=== PATIENT | female | born 1995 | race Caucasian/White ===

== ENCOUNTER 2017-05-24 19:22 | Emergency (ER) | payer SELFPAY ==
[~2017-05-24] VITALS: Ht 147.3 cm; Wt 43.6 kg
[2017-05-24 19:25] VITALS: TEMP 36.4; Ht 147.3 cm; Wt 43.6 kg
[2017-05-24] MEDS ORDERED: KETOROLAC TROMETHAMINE 30 MG/ML VIAL IV STA (20:29)
[2017-05-24] MEDS ORDERED: SODIUM CHLORIDE 0.9% 1000ML 1,000 ML IV STA (20:29)
[2017-05-24] MEDS ORDERED: DIPH1TAB98 PO (20:51)
[2017-05-24 21:14] LABS: BASO % 0.4 %; BASO ABS # 0.05 K/uL (0-0.2); EOS % 2.3 %; EOS ABS # 0.26 K/uL (0-0.5); HEMATOCRIT 36.8 % (37-47); HEMOGLOBIN 12.7 g/dL (12.0-16.0); IG# 0.03 K/uL (0.00-0.02); LYMPH % 19.3 %; LYMPH ABS # 2.21 K/uL (1.2-3.4); MEAN CELL VOLUME 87.4 fL (80-100); MEAN CORPUSCULAR HEMOGLOBIN 30.2 pg (25-34); MEAN CORPUSCULAR HGB CONC 34.5 g/dl (32-36); MEAN PLATELET VOLUME 11.1 fL (7.4-10.4); MONO % 6.4 %; MONO ABS # 0.73 K/uL (0.11-0.59); NEUT % 71.3 %; PLATELET COUNT 259 K/uL (130-400); RED CELL DISTRIBUTION WIDTH SD 41.9 fL (36.4-46.3); WHITE BLOOD COUNT 11.48 K/uL (4.8-10.8)
[2017-05-24 21:29] LABS: PTT PATIENT 28.2 SECONDS (21.0-31.0)
[2017-05-24 21:44] LABS: ALBUMIN 4.5 gm/dl (3.4-5.0); ALT/SGPT 16 U/L (12-78); AST/SGOT 15 U/L (15-37); BLOOD UREA NITROGEN 6 mg/dl (7-18); CALCIUM 8.7 mg/dl (8.5-10.1); CARBON DIOXIDE 24 mmol/L (21-32); CREATININE 0.52 mg/dl (0.60-1.20); GLUCOSE 80 mg/dl (70-99); POTASSIUM 3.2 mmol/L (3.5-5.1); SODIUM 140 mmol/L (136-145)
[2017-05-24 21:46] LABS: ALKALINE PHOSPHATASE 55 U/L (45-117); TOTAL PROTEIN 6.8 gm/dl (6.4-8.2)
--- NOTE | 2017-05-24 22:30 | DIAGNOSTIC IMAGING REPORT ---
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 No myometrial mass lesions identified. Endometrium measures 0.5 cm and appears trilaminar. The right ovary measures 5.1 x 1.6 x 2.7 cm demonstrates normal-appearing follicles. Arterial inflow to the right ovary is documented. No right adnexal mass lesions. Left ovary measures 1.6 x 3.7 x 2.3 cm and is also within normal limits with arterial inflow documented. No left adnexal mass lesions. Trace free pelvic fluid, likely physiologic. IMPRESSION: 1. Unremarkable sonographic appearance of the uterus and endometrium. 2. No evidence of ovarian torsion. 3. Trace free pelvic fluid, likely physiologic. The above report was generated using voice recognition software. It may contain grammatical, syntax or spelling errors. Electronically signed by: Cornelius Murphy M.D. 05/24/2017 10:28 PM Dictated Date/Time: 05/24/2017 10:26 PM
[2017-05-24] MEDS ORDERED: CEPHALEXIN 500MG HOME PACK 1 EA BTL PO ONE (22:45)
[2017-05-24] MEDS ORDERED: CEPH500C2 PO (22:46)
[2017-05-24 23:02] VITALS: BP 112/81; PULSE 85; O2SAT 99
--- NOTE | 2017-05-25 16:41 | EMERGENCY ROOM VISIT NOTE ---
ED Visit Note First contact with patient: 19:54 Chief Complaint: Abdominal cramping and vaginal bleeding. History of Present Illness: Ms. Pace is a 21 year-old white female who ambulates into the ED accompanied by female friend complaining of mid lower quadrant abdominal cramping and vaginal bleeding. Historically patient reports she has a history of irregular menstrual cycles. Last year she was on control to try to regulate them but it was unsuccessful and she has been off control for approximately 6 months. Patient reports she noted vaginal bleeding last evening that she describes as spotting. She then started to developed a cramping sensation in the mid bilateral lower abdomen area. Pain intermittently radiates into the lower back. She rates her discomfort 8/10. She has not identified any aggravating or alleviating factors related to the pain. She has not taken any medication for pain prior to arrival at the hospital. Associated with her pain she reports she is changing her tampon or pad every 3 hours, she is passing small and larger clots up to the size of a quarter and she reports that in the beginning part of the month she was experiencing some breast tenderness which is subsequently resolved. Additionally she reports earlier today she was getting out of bed and had an explosive episode of vaginal bleeding. Patient denies fevers, chills, sweats, skin eruptions, skin color changes, upper respiratory tract symptoms, shortness of breath, chest pain, nausea, vomiting, diarrhea, constipation, rectal bleeding, black/tarry stools, urinary symptoms, hematuria, vaginal discharge, painful intercourse, postcoital bleeding. Review of Systems: As noted above in history of present illness. All body systems were reviewed and found to be negative as noted above. Past Medical History: Bronchitis, anxiety, insomnia, status post wisdom teeth extraction and tonsillectomy and adenoidectomy. Current Medications: Benadryl. Allergies to Medications: Bactrim. Social History: Patient is currently employed; she feels safe in her home environment; she admits to tobacco and alcohol use. Physical Examination: Vital Signs: Date Time Temp Pulse Resp B/P (MAP) Pulse Ox O2 Delivery O2 Flow Rate FiO2 05/24/17 23:02 85 18 112/81 99 05/24/17 21:57 99 18 119/71 99 Room Air 05/24/17 19:25 36.4 107 18 128/80 99 Room Air GENERAL: 21-year-old female in mild to moderate distress due to symptoms, nontoxic-appearing, afebrile and hemodynamically stable. NEUROLOGICAL: Awake, alert and oriented to person, place and time. Answering questions appropriately and following commands. Normal gait. Good hand eye coordination. SKIN: Warm, dry and pink. No soft tissue eruptions or trauma noted. HEENT: Atraumatic and normocephalic. PERRLA. Sclera white and conjunctiva pink. Oral cavity moist and pink. Pharynx is nonerythematous or edematous. Speech normal. No lymphadenopathy. Trachea midline. No jugular venous distention. BACK: No tenderness over the bony spine. No CVA tenderness. THORAX: Lungs sounds are clear to auscultation and equal bilaterally with symmetrical chest wall. No wheezing, rales or rhonchi. No crepitus, tenderness , subcutaneous air or deformities noted. HEART: Regular rate and rhythm. No gallops, rubs or murmurs are appreciated. ABDOMEN: Flat, soft and nontender. Positive bowel sounds in all quadrants. No guarding, rigidity or organomegaly. PELVIC: External genitalia: Normal appearing external genitalia with no erythema, edema , lesions. Speculum exam: Vagina pink, mucosa not atrophy. Cervix 2 cm in diameter with a small os and around without lesions. A small amount of blood was noted in the vaginal vault. No active bleeding noted. . EXTREMITIES: Moves all extremities well on command and with purpose. All distal neurovascular statuses are intact and equal bilaterally. ED Course: Patient is assessed as noted above. Patient is assessed as noted above. Laboratory Testing: Test 05/24/17 20:40 05/24/17 20:45 Range/Units Urine Color RED Urine Appearance CLOUDY CLEAR Urine pH 6.0 4.5-7.5 Urine Specific [place] 1.025 1.000-1.030 Urine Protein 2+ NEG Urine Glucose (UA) NEG NEG Urine Ketones NEG NEG Urine Occult Blood 3+ NEG Urine Nitrite NEG NEG Urine Bilirubin NEG NEG Urine Urobilinogen NEG NEG Urine Leukocyte Esterase SMALL NEG Urine RBC >30 0-4 /hpf Urine WBC 10-30 0-5 /hpf Urine Epithelial Cells 5-10 0-5 /lpf Urine Bacteria NEG NEG White Blood Count 11.48 4.8-10.8 K/uL Red Blood Count 4.21 4.2-5.4 M/uL Hemoglobin 12.7 12.0-16.0 g/dL Hematocrit 36.8 37-47 % Mean Corpuscular Volume 87.4 80-100 fL Mean Corpuscular Hemoglobin 30.2 25-34 pg Mean Corpuscular Hemoglobin Concent 34.5 32-36 g/dl Platelet Count 259 130-400 K/uL Mean Platelet Volume 11.1 7.4-10.4 fL Neutrophils (%) (Auto) 71.3 % Lymphocytes (%) (Auto) 19.3 % Monocytes (%) (Auto) 6.4 % Eosinophils (%) (Auto) 2.3 % Basophils (%) (Auto) 0.4 % Neutrophils # (Auto) 8.20 1.4-6.5 K/uL Lymphocytes # (Auto) 2.21 1.2-3.4 K/uL Monocytes # (Auto) 0.73 0.11-0.59 K/uL Eosinophils # (Auto) 0.26 0-0.5 K/uL Basophils # (Auto) 0.05 0-0.2 K/uL RDW Standard Deviation 41.9 36.4-46.3 fL RDW Coefficient of Variation 13.0 11.5-14.5 % Immature Granulocyte % (Auto) 0.3 % Immature Granulocyte # (Auto) 0.03 0.00-0.02 K/uL Prothrombin Time 10.0 9.0-12.0 SECONDS Prothromb Time International Ratio 1.0 0.9-1.1 Activated Partial Thromboplast Time 28.2 21.0-31.0 SECONDS Partial Thromboplastin Ratio 1.1 Sodium Level 140 136-145 mmol/L Potassium Level 3.2 3.5-5.1 mmol/L Chloride Level 110 98-107 mmol/L Carbon Dioxide Level 24 21-32 mmol/L Anion Gap 6.0 3-11 mmol/L Blood Urea Nitrogen 6 7-18 mg/dl Creatinine 0.52 0.60-1.20 mg/dl Est Creatinine Clear Calc Drug Dose 110.4 ml/min Estimated GFR () > 150.0 Estimated GFR (Non- 136.6 BUN/Creatinine Ratio 12.1 10-20 Random Glucose 80 70-99 mg/dl Calcium Level 8.7 8.5-10.1 mg/dl Total Bilirubin 0.5 0.2-1 mg/dl Aspartate Amino Transf (AST/SGOT) 15 15-37 U/L Alanine Aminotransferase (ALT/SGPT) 16 12-78 U/L Alkaline Phosphatase 55 45-117 U/L Total Protein 6.8 6.4-8.2 gm/dl Albumin 4.5 3.4-5.0 gm/dl Globulin 2.3 2.5-4.0 gm/dl Albumin/Globulin Ratio 2.0 0.9-2 Human Chorionic Gonadotropin, Quant < 1 mIU/mL Complete Pelvic Ultrasound: Was reviewed by myself and read by the radiologist showing an unremarkable appearance to the uterus and endometrium, no evidence of ovarian torsion. Trace free fluid. Patient was hydrated with normal saline and she was given 30 mg of Toradol IV for pain. Patient was reassessed multiple times during her stay in the emergency department. Patient's case was reviewed with Dr. Obregon; he recommended starting the patient on Keflex until urine culture could be obtained. Patient was educated about today's findings and instructed on her treatment plan ; she verbalized understanding and agreement with this plan. Clinical Impression: Vaginal bleeding. Lower abdominal pain. Decision-Making: Initially my differential diagnosis I considered miscarriage, menorrhagia, ovarian cyst rupture, and other causes. Disposition: Patient discharged home in stable condition accompanied by female friend; prior to departure she was reassessed and subjectively reported she was feeling better and rated her discomfort 3/10. Plan: Patient was encouraged you 600 mg of ibuprofen every 6 hours as needed for pain. Patient was prescribed Keflex 500 mg 4 times a day for 5 days. Patient was encouraged to avoid tampons and use sanitary pads. Patient was encouraged to have vaginal rest until followed up by [facility]. Patient was encouraged to call [facility] for follow-up care and treatment. Patient was encouraged return the ED for worsening/uncontrolled pain, worsening/ uncontrolled vaginal bleeding, fevers or any new/concerning symptoms.
== END 2017-05-24 23:03 | disposition home or self-care (01) ==
LOC: C.EDB 19:24 → C.EDC 23:03
DX: N93.9 Abnormal uterine and vaginal bleeding, unspecified (principal); R10.30 Lower abdominal pain, unspecified; F41.9 Anxiety disorder, unspecified; Z88.1 Allergy status to other antibiotic agents; Z72.0 Tobacco use